=== PATIENT | female | born 1990 | race Caucasian/White ===

== ENCOUNTER 2024-05-24 19:51 | Inpatient (IN) | payer OTHER ==
[2024-05-24 21:38] VITALS: BP 118/79; PULSE 75; RESP 18; TEMP 97.3; BMI 27.3
[2024-05-24] MEDS ORDERED: MELATONIN 5 MG TABLETS PO SCH (22:00)
[2024-05-24] MEDS ORDERED: NICOTINE POLACRILEX 2 MG LOZENGE BC PRN (22:10)
[2024-05-24] MEDS ORDERED: MAG HYDROX/AL HYDROX/SIMETH 30 ML UNIT-DOSE CUP PO PRN (22:10)
[2024-05-24] MEDS ORDERED: BISACODYL 5 MG TABLET.DR (FP) PO PRN (22:10)
[2024-05-24] MEDS ORDERED: ACETAMINOPHEN 325 MG TABLET (FP) PO PRN (22:10)
[2024-05-24] MEDS ORDERED: POLYETHYLENE GLYCOL (HEALTHYLAX) 3350 17 GM PACKET PO PRN (22:10)
[2024-05-24] MEDS ORDERED: LOPERAMIDE HCL 2 MG CAPSULE PO PRN (22:10)
[2024-05-24] MEDS ORDERED: IBUPROFEN 600 MG TABLET (FP) PO PRN (22:10)
[2024-05-24] MEDS ORDERED: BENZOCAINE/MENTHOL (CHLORASEPTIC ) LOZENGE MM PRN (22:10)
[2024-05-24] MEDS ORDERED: MAGNESIUM HYDROX 2400MG/30ML ORAL SUSPENSION 30 ML CUP PO PRN (22:10)
[2024-05-24] MEDS ORDERED: NICOTINE POLACRILEX 2 MG GUM BUC PRN (22:10)
[2024-05-24] MEDS ORDERED: hydrOXYzine PAMOATE 25 MG CAPSULE (FP) PO PRN (22:10)
[2024-05-24] MEDS ORDERED: DOCUSATE SODIUM 100 MG CAPSULE (FP) PO PRN (22:10)
[2024-05-24] MEDS ORDERED: IBUPROFEN 400 MG TABLET (FP) PO PRN (22:10)
[2024-05-24] MEDS ORDERED: guaiFENesin 600 MG TABLET.ER (FP) PO PRN (22:10)
[2024-05-24] MEDS ORDERED: P-EPHED 60MG/TRIPROLIDI 2.5MG TABLET PO PRN (22:10)
[2024-05-24] MEDS ORDERED: BENZONATATE 200 MG CAPSULE PO PRN (22:10)
[2024-05-25] MEDS ORDERED: TUBERCULIN PPD 5 TU/0.1ML SYRINGE (IN PATIENT USE ONLY) ID ONE (09:00)
[2024-05-25] MEDS ORDERED: PRENATAL VITAMINS W/ FOLIC ACID TABLET (FP) PO SCH (10:00)
[2024-05-25] MEDS ORDERED: THIAMINE 100 MG TABLET PO SCH (22:00)
== END 2024-05-24 23:30 | disposition home or self-care (01) | DRG 772 ==
LOC: YASAS 19:51 → Y3NR 22:05
PROVIDERS: ADMIT Allergy & Immunology; ATTEND Psychiatry & Neurology Pain Medicine
PROC: HZ42ZZZ Group Counseling for Substance Abuse Treatment, Cognitive-Behavioral (ICD-10-PCS; principal; 2024-05-24)
DX: F14.20 Cocaine dependence, uncomplicated (principal); F15.10 Other stimulant abuse, uncomplicated; F12.10 Cannabis abuse, uncomplicated; F17.210 Nicotine dependence, cigarettes, uncomplicated; F32.A Depression, unspecified; F41.9 Anxiety disorder, unspecified
CPT/HCPCS: 80305